=== PATIENT | male | born 1955 | race Caucasian/White ===

== ENCOUNTER 2021-06-10 07:32 | Day surgery (SDC) | payer MEDICARE ==
[~2021-06-10 07:32] MED LIST: AMLODIPINE5 MG PO; ASPIRIN81 MG PO; HYDROXYZINE PAM25 MG PO; LEVOTHYROXIN75 MCG PO; LORTAB 5/3255 MG PO; LOSARTAN POT50 MG PO; PRILOSEC20 MG/CAP PO; PROTONIX40 M2 PO; TIZANIDINE2 MG PO; VICODIN ES1 TA1 PO; XARELTO10 MG PO
[2021-06-10 10:53] VITALS: BP 124/72
== END 2021-06-10 10:00 | disposition home or self-care (01) ==
LOC: ENDO 07:32
PROVIDERS: ATTEND Surgery
PROC: 0DJD8ZZ Inspection of Lower Intestinal Tract, Via Natural or Artificial Opening Endoscopic (ICD-10-PCS; principal; 2021-06-10)
DX: Z12.11 Encounter for screening for malignant neoplasm of colon (principal); I10 Essential (primary) hypertension; K21.9 Gastro-esophageal reflux disease without esophagitis

== ENCOUNTER 2024-09-01 06:59 | Emergency (ER) | payer MEDICARE ==
[~2024-09-01] VITALS: Ht 180.3 cm; Wt 82.0 kg
[2024-09-01] VITALS (9 sets, daily range): BP systolic 117–146; BP diastolic 67–77
[2024-09-01] MEDS ORDERED: ASPIRIN 81 MG/TAB PO ONE (07:10)
[2024-09-01] MEDS ORDERED: SODIUM CHLORIDE 0.9% 1,000 ML IV ONE (07:15)
[2024-09-01] MEDS ORDERED: NITROGLYCERIN 0.4 MG/TAB SL ONE (07:15)
[2024-09-01 07:29] LABS: BASO% 0.5 % (0-3); EOS% 1.5 % (0-8); IMMATURE GRANULOCYTES 0.2 % (0.0-5.0); LYMPH% 15.3 % (15-41); MEAN CELL VOLUME 89.3 fL CALC (80.0-100.0); MEAN CORPUSCULAR HGB CONC 33.6 g/dL CAL (32.0-36.0); MONO% 4.3 % (2-13); NEUT# 9.3 thou/uL (1.82-7.42); NEUT% 78.2 % (42-76); RED BLOOD COUNT 4.57 mill/uL (4.70-6.10); RED CELL DISTRI WIDTH 12.3 % (11.5-15.5)
[2024-09-01 07:30] LABS: HEMATOCRIT 40.8 % (39.0-50.0); HEMOGLOBIN 13.7 g/dl (14.0-18.0)
[2024-09-01 07:43] LABS: ALBUMIN 4.5 g/dL (3.2-5.0); ALKALINE PHOSPHATASE 99 u/l (38-126); ANION GAP 10 (6-22 (CALC)); BILIRUBIN, TOTAL 0.4 mg/dL (0.2-1.3); BUN 26 mg/dL (8-23); BUN/CREATININE RATIO 21 (12-20 (CALC)); CARBON DIOXIDE 25 mmol/l (22-30); CHLORIDE 111 mmol/l (95-108); CREATININE 1.3 mg/dL (0.7-1.3); ESTIMATED GFR 59 ML/MIN (>=90 (CALC)); POTASSIUM 4.7 mmol/l (3.5-5.1); SGOT/AST 41 u/l (19-48); SODIUM 141 mmol/l (137-146); TOTAL PROTEIN 7.5 g/dL (6.3-8.2)
[2024-09-01] MEDS ORDERED: ALBUTEROL SULFATE 2.5 MG VIAL NEB ONE (10:30)
== END 2024-09-01 12:33 | disposition home or self-care (01) ==
LOC: ED 06:59
PROVIDERS: Family Medicine
DX: R07.9 Chest pain, unspecified (principal); I10 Essential (primary) hypertension; K21.9 Gastro-esophageal reflux disease without esophagitis; Z87.01 Personal history of pneumonia (recurrent)
CPT/HCPCS: Q9967